=== PATIENT | female | born 1945 | race Caucasian/White ===

== ENCOUNTER → 2017-11-11 | Outpatient (CLI) | payer MEDICARE | END | disposition home or self-care (01) | LOC: KCIC 10:09 | DX: J84.10 Pulmonary fibrosis, unspecified (principal); J40 Bronchitis, not specified as acute or chronic; N64.4 Mastodynia; R91.8 Other nonspecific abnormal finding of lung field; Z87.891 Personal history of nicotine dependence | CPT/HCPCS: 71046 ==

== ENCOUNTER → 2017-11-17 | Outpatient (CLI) | payer MEDICARE ==
[~2017-11-17] MED LIST: IOHEXOL 300 MG/ML 100ML VIAL. IV
[2017-11-17 13:00] LABS: ISTAT CREATININE 0.7 mg/dL (0.6-1.1)
== END | disposition home or self-care (01) ==
LOC: KCIC CT 11:58
DX: J67.9 Hypersensitivity pneumonitis due to unspecified organic dust (principal); J84.89 Other specified interstitial pulmonary diseases; E04.1 Nontoxic single thyroid nodule; D71 Functional disorders of polymorphonuclear neutrophils; K80.20 Calculus of gallbladder without cholecystitis without obstruction
CPT/HCPCS: 71260; 82565

== ENCOUNTER → 2017-11-25 | Outpatient (CLI) | payer MEDICARE | END | disposition home or self-care (01) | LOC: KCIC US 10:05 | DX: E04.2 Nontoxic multinodular goiter (principal) | CPT/HCPCS: 76536 ==

== ENCOUNTER → 2018-02-16 | Outpatient (CLI) | payer MEDICARE | END | disposition home or self-care (01) | LOC: KCIC CT 09:26 | DX: I70.0 Atherosclerosis of aorta (principal); D71 Functional disorders of polymorphonuclear neutrophils; K80.20 Calculus of gallbladder without cholecystitis without obstruction; R91.8 Other nonspecific abnormal finding of lung field | CPT/HCPCS: 71250 ==